=== PATIENT | male | born 1995 | race Caucasian/White ===

== ENCOUNTER 2018-08-21 20:28 | Emergency (ER) | payer OTHER ==
[~2018-08-21] VITALS: Ht 185.4 cm; Wt 72.7 kg
--- NOTE | 2018-08-21 21:29 | REP ---
Clinical: Trauma. Fall. Technique: AP view of the pelvis with neutral and frog lateral views of the right hip. Findings: No acute fracture or dislocation. Skeletal structures, joint spaces, and surrounding soft tissues appear normal. No subcutaneous emphysema or radiodense foreign body. Impression: No acute fracture or dislocation. Electronically Signed by Femi Woodson MD 08/21/2018 09:20 P
[2018-08-21] MEDS ORDERED: CYCL10TA PO (21:33)
[2018-08-21] MEDS ORDERED: IBUP-1022 PO (21:33)
[2018-08-21 21:44] VITALS: BP 119/72
== END 2018-08-21 21:53 | disposition home or self-care (01) ==
LOC: M ED 20:28
DX: S76.011A Strain of muscle, fascia and tendon of right hip, initial encounter (principal); V89.9XXA Person injured in unspecified vehicle accident, initial encounter; Y92.019 Unspecified place in single-family (private) house as the place of occurrence of the external cause

== ENCOUNTER 2019-09-03 14:44 | Emergency (ER) | payer OTHER ==
[~2019-09-03] VITALS: Ht 185.4 cm; Wt 72.0 kg
[~2019-09-03 14:44] MED LIST: CYCL10TA PO; IBUP-1022 PO
[2019-09-03 15:44] VITALS: BP 132/84
== END 2019-09-03 15:55 | disposition home or self-care (01) ==
LOC: M ED 14:44
DX: Z02.89 Encounter for other administrative examinations (principal); M54.5 Low back pain; Z79.899 Other long term (current) drug therapy